=== PATIENT | female | born 1970 | race Caucasian/White ===

== ENCOUNTER 2018-08-18 07:23 | Day surgery (SDC) | payer OTHER ==
[2018-08-17 11:38] VITALS: BMI 19.2
[2018-08-18 08:39] VITALS: TEMP 98.8
[2018-08-18 09:36] VITALS: BP 108/50; PULSE 68
--- NOTE | 2018-08-21 16:32 | PATH ---
Surgical Pathology Report Patient Name: CODY DAO [facility]. Rec. #: [id number] /Age/Gender: 1970 (Age: 48) / F Account: [id number] Location: [facility] [place]-ENDOSCOPY Taken: 08/18/2018 Received: 08/18/2018 Reported: 08/21/2018 Physicians: Leonard Magallon M.D. Specimen(s) Received A: BX DUODENUM B: BX ANTRUM C: BX DISTAL AND MID ESOPHAGUS Clinical History GERD, history of gastric polyp Postoperative diagnosis: Gastritis, GERD Final Diagnosis A. SECOND PORTION DUODENUM AND DUODENAL BULB, BIOPSY: DUODENAL MUCOSAL WITH FOCAL MILD NON-SPECIFIC CHRONIC INFLAMMATION. NO HISTOLOGIC EVIDENCE OF CELIAC DISEASE. B. ANTRUM, BIOPSY: GASTRIC MUCOSA WITH REACTIVE GASTROPATHY. IMMUNOSTAIN FOR H. PYLORI IS NEGATIVE. NEGATIVE FOR INTESTINAL METAPLASIA. C. DISTAL AND MID ESOPHAGUS, BIOPSY: ESOPHAGEAL MUCOSA WITH NO DIAGNOSTIC ABNORMALITIES. NO HISTOLOGIC EVIDENCE OF EOSINOPHILIC ESOPHAGITIS. Electronically Signed Scott Reis M.D. Gross Description A. Received in formalin, labeled "biopsy second portion of duodenum and duodenal bulb" are 5 lyles, irregular portions of soft tissue ranging from 0.1-0.5 cm. in greatest dimension. The specimens are submitted in toto in one cassette. B. Received in formalin, labeled "biopsy antrum" are 5 lyles, irregular portions of soft tissue ranging from 0.1-0.4 cm. in greatest dimension. The specimens are submitted in toto in one cassette. C. Received in formalin, labeled "biopsy distal and mid esophagus" are 3 lyles, irregular portions of soft tissue ranging from 0.4-0.5 cm. in greatest dimension. The specimens are submitted in toto in one cassette. DL08/18/2018 saudi08/18/2018
== END 2018-08-18 09:36 | disposition home or self-care (01) ==
LOC: JASU-ENDO 07:23
PROVIDERS: ATTEND Internal Medicine Gastroenterology
PROC: 0DB68ZX Excision of Stomach, Via Natural or Artificial Opening Endoscopic, Diagnostic (ICD-10-PCS; 2018-08-18)
PROC: 0DB18ZX Excision of Upper Esophagus, Via Natural or Artificial Opening Endoscopic, Diagnostic (ICD-10-PCS; 2018-08-18)
PROC: 0DB28ZX Excision of Middle Esophagus, Via Natural or Artificial Opening Endoscopic, Diagnostic (ICD-10-PCS; 2018-08-18)
PROC: 0DB98ZX Excision of Duodenum, Via Natural or Artificial Opening Endoscopic, Diagnostic (ICD-10-PCS; principal; 2018-08-18 11:00)
DX: Z13.810 Encounter for screening for upper gastrointestinal disorder (principal); K29.80 Duodenitis without bleeding; K31.9 Disease of stomach and duodenum, unspecified; R05 Cough; R49.0 Dysphonia; K21.9 Gastro-esophageal reflux disease without esophagitis
CPT/HCPCS: 84703; 88305-TC; 88342-TC